=== PATIENT | male | born 2000 | race Caucasian/White ===

== ENCOUNTER 2024-04-14 12:01 | Emergency (ER) | payer BC, SELFPAY ==
[2024-04-14 12:07] VITALS: BP 115/73; PULSE 73; RESP 18; TEMP 36.9; O2SAT 96; BMI 24.4
--- NOTE | 2024-04-14 12:17 | ED_ITS ---
HPI - General Adult General Time Seen by Provider: 12:17 Date Seen: 04/14/24 Chief complaint: Dizziness/Vertigo Stated complaint: Needs A1C done Time Seen by Provider: 04/14/24 12:17 Source: patient, family and RN notes reviewed Mode of arrival: ambulatory Limitations: no limitations History of Present Illness HPI narrative: Chi is a very pleasant 23-year-old college student who comes to the [place] [facility] with his mom for evaluation regarding weakness, elevated blood sugars, content constant fatigue. Chi states that in September of this year he tested positive for mono. His symptoms included fatigue lightheadedness splenomegaly and persistent enlargement of his lymph nodes. He notes that in January he had an ultrasound at which time he still had residual spleen enlargement. Recently however he has had issues of early CAD, lightheadedness and fatigue as well as blurriness in his eyes after eating. He has had a 25-30 lb weight loss since September of this year. Of note he also has a history of EOE diagnosis through [facility] and actually has an upcoming endoscopy scheduled on April 27. Patient notes that he tested is blood sugars with his dad's who common her last night and this morning. Last evening he had a blood sugar over 300 and repeat this morning was 319. He does note that he has been urinating a lot and has been very thirsty and drinking a lot of fluids. Chi thinks that he had a flare of his EOE ED approximately 2 weeks ago. He is seen primarily through the [facility] system but is a student here in [place]. Mom and dad live in [place]. Need Chi has not been suffering any fevers. He has had some loose stools. While nauseated he has not had any vomiting. He denies sore throat cough congestion. Chi in his mom of course are very concerned regarding diabetes. They stressed the importance of a hemoglobin A1c described to them by the triage nurse on their telephone call this morning. Related Data Home Medications ?Medication ?Instructions ?Recorded ?Confirmed budesonide 04/14/24 Allergies Allergy/AdvReac Type Severity Reaction Status Date / Time No Known Drug Allergies Allergy Verified 04/14/24 12:12 Review of Systems Status of ROS: Reports: 10 or more systems reviewed and unremarkable except as noted in History and below Const: Reports: change in weight (25-30 lb weight loss since September 2023) and fatigue; Denies: fever or chills Eyes: Reports: blurry vision; Denies: change in vision ENMT: Denies: neck pain or nasal congestion Cardio: Reports: lightheadedness; Denies: chest pain, swelling of feet/ankles or shortness of breath with exertion Resp: Denies: shortness of breath or cough GI: Reports: abdominal pain, nausea and diarrhea; Denies: vomiting : Reports: urinary frequency; Denies: painful urination Musculo: Denies: back pain or neck pain Neuro: Reports: headache Endo: Reports: fatigue PFSH PFSH Social History Smoking Status: Never smoker Do you use any of these nicotine containing products: None How often do you have a drink containing alcohol: never How often do you have six or more drinks on one occasion: Never AUDIT-C Alcohol total score: 0 Non-prescribed substance use: denies use Exam Narrative: Exam Narrative: Chi is alert and oriented. No acute distress. External ears eyes nose clear. Neck is supple without lymphadenopathy. Heart with regular rate and rhythm without additional heart sounds or murmurs. Lungs are clear bilaterally. Abdomen is soft. No significant tenderness with palpation. No masses are palpated. Lower extremities without edema. Moving all extremities. Const: Vital Signs, click to edit/add: Vital Signs - 24 hr 04/14/24 12:07 04/14/24 14:23 Temperature 98.4 F Pulse Rate [Right Pulse Oximeter] 73 76 Respiratory Rate 18 Blood Pressure [Ri ght Upper Arm] 115/73 125/74 Pulse Oximetry 96 96 Oxygen Delivery Me thod Room Air Room Air Documenting provider has reviewed patient's vital signs: yes Course Course ED Course: Differential diagnosis includes but is not limited to post viral syndrome/post mono syndrome, type 1 diabetes, type 2 diabetes. Of course my concern is new onset type 1 diabetes. At this time will place IV and check labs to include CBC, comprehensive panel, CRP, TSH, hemoglobin A1c, celiac panel. Reevaluation(s) Reevaluation #1: Labs have returned as normal with a normal hemoglobin, white count, glucose, creatinine and LFTs. Lactate is negative. CRP is normal. Lipase TSH all within normal limits urinalysis shows trace ketones but no evidence of glucosuria. These findings are very reassuring. Patient continues to note early satiety and therefore will do an abdominal ultrasound to check for any hepato or splenomegaly. Reevaluation #2: No evidence of a paddle or splenomegaly noted on abdominal ultrasound. Patient denies any previous tick bites that have added a Lyme and tick panel. Vital Signs Vital signs: Initial Vital Signs Temperature 98.4 F 04/14/24 12:07 Temperature Source Temporal Artery Scan 04/14/24 12:07 Pulse Rate 73 04/14/24 12:07 Respiratory Rate 18 04/14/24 12:07 Blood Pressure 115/73 04/14/24 12:07 Blood Pressure Mean 87 04/14/24 12:07 Blood Pressure Position Sitting 04/14/24 12:07 Pulse Oximetry 96 04/14/24 12:07 Oxygen Delivery Method Room Air 04/14/24 12:07 Vital Signs Temperature 98.4 F 04/14/24 12:07 Pulse Rate 73 04/14/24 12:07 Respiratory Rate 18 04/14/24 12:07 Blood Pressure 115/73 04/14/24 12:07 Pulse Oximetry 96 04/14/24 12:07 Oxygen Delivery Method Room Air 04/14/24 12:07 Temperature 98.4 F 04/14/24 12:07 Pulse Rate 76 04/14/24 14:23 Respiratory Rate 18 04/14/24 12:07 Blood Pressure 125/74 04/14/24 14:23 Pulse Oximetry 96 04/14/24 14:23 Oxygen Delivery Method Room Air 04/14/24 14:23 Medications Administered Medications: Discontinued Medications Generic Name Dose Route Start Last Admin Trade Name Freq PRN Reason Stop Dose Admin Sodium Chloride 1,000 mls @ 1,000 mls/hr 04/14/24 12:28 04/14/24 14:00 0.9 % Sodium Chloride 1000 Ml IV 04/14/24 13:27 Infused .Q1H TIMUR Infusion Medical Decision Making MDM Narrative Medical decision making narrative: 1. Fatigue-likely a post mono type syndrome. Have ruled out hyperglycemia. White count and CRP within normal limits. TSH within normal limits. No evidence of anemia electrolyte abnormality kidney dysfunction or elevated liver enzymes. CRP is within normal limits. No evidence of UTI. 2. Hyperglycemia-initial glucose 87 here. Post food intake 112. I cannot explain the 2 values over 300 that patient had last night and early this morning. Hemoglobin A1c within normal limits. 3. History of splenomegaly-normal ultrasound here today. 4. Disposition- home at this time. Follow-up with 1 of our clinics to establish for further testing for ongoing fatigue, headache, body ache symptoms. This is in the setting of weight loss. TSH was normal today. Because of loose stools I did add a celiac test. Return to the emergency room for worsening symptoms. Lab Data Lab results reviewed: Yes I reviewed the patient's lab results Labs: Lab Results 04/14/24 04/14/24 04/14/24 Range/Units 12:46 16:08 16:31 WBC 5.71 (4.50-11.00) K/uL RBC 5.47 (4.30-5.90) m/uL Hgb 16.3 (13.5-17.5) gm/dL Hct 48.2 (37.0-53.0) % MCV 88 (80-100) fL MCH 30 (26-34) pg MCHC 34 (32-36) gm/dL RDW Coeff of Trinity 11.7 (11.5-15.5) % Plt Count 236 (140-440) K/uL Neut % (Auto) 59.2 (42.0-72.0) % Lymph % (Auto) 27.5 (20-44) % Nash % (Auto) 8.9 (0.0-11.0) % Eos % (Auto) 3.7 (0.0-7.0) % Baso % (Auto) 0.7 (0.0-3.0) % Neut # (Auto) 3.38 (1.7-7.0) K/uL Lymph # (Auto) 1.57 (0.90-2.90) K/uL Nash # (Auto) 0.50 (0.00-0.90) K/UL Eos # (Auto) 0.21 (0.00-0.50) K/uL Baso # (Auto) 0.04 (0.00-0.30) K/uL Abs Immat Gran (auto) 0.00 (0.00-0.30) K/uL Imm/Tot Granulo (auto) 0.0 % Sodium 139 (135-149) mmol/L Potassium 4.1 (3.6-5.1) mmol/L Chloride 101 (96-114) mmol/L Carbon Dioxide 28 (20-32) mmol/L Anion Gap 10 (7-15) mEq/L BUN 11 (5-24) mg/dL Creatinine 0.9 (0.5-1.5) mg/dL Estimated Creat Clear 132.93 Estimated GFR 124 ml/min Glucose 87 (60-115) mg/dL Hemoglobin A1c 5.2 (0-5.6) % Lactate 0.8 (0.5-1.9) mmol/L Calcium 9.8 (8.4-10.6) mg/dL Total Bilirubin 1.0 (0.1-1.5) mg/dL AST 24 (12-35) U/L ALT 19 (4-50) U/L Alkaline Phosphatase 58 (40-150) U/L C-Reactive Protein < 0.5 L (0.5-1.0) mg/dL Total Protein 7.6 (6.0-8.3) g/dL Albumin 5.0 (3.3-5.0) g/dL Lipase 63 (23-300) U/L TSH 1.040 (0.270-4.200) uIU/mL Urine Color Yellow (Yellow) Urine Appearance Clear (Clear) Urine pH 7.5 (5.0-8.5) Ur Specific [place] 1.015 (1.000-1.030) Urine Protein Negative (Negative) Urine Glucose (UA) Negative (Negative) Urine Ketones Trace A (Negative) Urine Blood Negative (Negative) Urine Nitrite Negative (Negative) Urine Bilirubin Negative (Negative) Urine Urobilinogen 0.2 (0.2-1.0) Ur Leukocyte Esterase Negative (Negative) Urine RBC 0-2 (0-2) Urine WBC 0-2 (0-5) Urine WBC Clumps None (None) Ur Squamous Epith Cells Few (None-Few) Urine Bacteria Few A (None) B.burgdorferi IgG Cancelled B.burgdorferi IgM Cancelled Lyme Disease Antibody Cancelled Lyme Disease Interpret Cancelled Lab Acknowledgement Test Added POC Glucose 112 (60-115) mg/dl Imaging Data US - abdomen: Attestation: I have reviewed the pertinent imaging results. Radiologist's impression: FINDINGS: The patient`s liver is of normal size and has uniform echogenicity. There is a normal appearance of the hepatic IVC and proximal abdominal aorta. There is no evidence of ascites. The gallbladder is of normal size and there is no evidence of intraluminal stones or sludge. The gallbladder wall measures 2 mm in thickness. The common bile duct is of normal size and measures 3 mm in diameter at the level of the ramiro hepatis. The visualized portions of the pancreas appears normal. Kidneys are unremarkable. Spleen is not enlarged measuring 11.1 centimeters x 3.9 x 5.8 centimeters. No splenic lesion. IMPRESSION: Unremarkable exam. Spleen is within normal limits. Discharge Plan Discharge Clinical Impression: Fatigue, Post viral syndrome Patient Disposition: Home, Self-Care Condition: Improved Additional Instructions: At this time initial blood sugar reassuring and blood sugar after eating was 112, still within normal limits. Ultrasound of the abdomen did not show any evidence of enlarged organs. I do think we should have you follow-up and establish with 1 of our physicians here in town for further tests in relation to your fatigue. Options: [facility]: [phone] Nidia Marmolejo, are two suggestions but really their staff is quite good Our Clinic: Dr Zimmerman, Dr Castro But again, any provider you pick is good Prescriptions: No Action budesonide Follow Up/Referrals: Provider,Not a Local [Primary Care Provider] - Stand Alone Forms: [employer] Info Instructions
[2024-04-14] MEDS: 0.9 % SODIUM CHLORIDE 1000 ml 1,000 ML IV (12:50)
[2024-04-14 12:53] LABS: Basophils Absolute Auto 0.04 K/uL (0.00-0.30); Basophils Percent Auto 0.7 % (0.0-3.0); Eosinophils Absolute Auto 0.21 K/uL (0.00-0.50); Eosinophils Percent Auto 3.7 % (0.0-7.0); Hematocrit 48.2 % (37.0-53.0); Hemoglobin* 16.3 gm/dL (13.5-17.5); Lactate* 0.8 mmol/L (0.5-1.9); Lymphocytes Absolute Auto 1.57 K/uL (0.90-2.90); Lymphocytes Percent Auto 27.5 % (20-44); Mean Corpuscular HGB Conc 34 gm/dL (32-36); Mean Corpuscular Hemoglobin 30 pg (26-34); Mean Corpuscular Volume 88 fL (80-100); Monocytes Percent Auto 8.9 % (0.0-11.0); Neutrophils Absolute Auto 3.38 K/uL (1.7-7.0); Neutrophils Percent Auto 59.2 % (42.0-72.0); Platelet Count* 236 K/uL (140-440); RDW Coefficient of Variation % 11.7 % (11.5-15.5); Red Blood Count 5.47 m/uL (4.30-5.90); White Blood Count* 5.71 K/uL (4.50-11.00)
[2024-04-14 12:54] LABS: Appearance Urine Clear (Clear); Bilirubin Urine Negative (Negative); Blood Urine Negative (Negative); Color Urine Yellow (Yellow); Glucose Urine Negative (Negative); Ketones Urine Trace (Negative); Leukocyte Esterase Urine Negative (Negative); Nitrite Urine Negative (Negative); Protein Urine Negative (Negative); Specific Gravity Urine 1.015 (1.000-1.030); Urobilinogen Urine 0.2 (0.2-1.0); pH Urine 7.5 (5.0-8.5)
[2024-04-14 13:07] LABS: Hemoglobin A1C* 5.2 % (0-5.6)
[2024-04-14 13:14] LABS: Chloride* 101 mmol/L (96-114); Sodium* 139 mmol/L (135-149)
[2024-04-14 13:15] LABS: Potassium* 4.1 mmol/L (3.6-5.1)
[2024-04-14 13:16] LABS: Creatinine* 0.9 mg/dL (0.5-1.5); Est. Creatinine Clearance* 132.93; Estimated Glomerular Filt Rate 124 ml/min
[2024-04-14 13:17] LABS: Alanine Aminotransferase* 19 U/L (4-50); Alkaline Phosphatase* 58 U/L (40-150); Anion Gap 10 mEq/L (7-15); Aspartate Amino Transferase* 24 U/L (12-35); Blood Urea Nitrogen* 11 mg/dL (5-24); Carbon Dioxide* 28 mmol/L (20-32); Glucose* 87 mg/dL (60-115); Lipase* 63 U/L (23-300); Total Protein* 7.6 g/dL (6.0-8.3)
[2024-04-14 13:18] LABS: Calcium* 9.8 mg/dL (8.4-10.6)
[2024-04-14 13:20] LABS: Bacteria Urine Few; RBC Urine 0-2 (0-2); Squamous Epithelial Cell Urine Few (None-Few); WBC Urine 0-2 (0-5)
[2024-04-14 13:47] LABS: Slide Review Reflex No
[2024-04-14 13:48] LABS: C Reactive Protein* < 0.5 mg/dL (0.5-1.0)
--- NOTE | 2024-04-14 14:10 | CRLHL7_ITS ---
For Patients: As a result of the Century Cures Act, medical imaging exams and procedure reports are released immediately into your electronic medical record. You may view this report before your referring provider. If you have questions, please contact your health care provider. CLINICAL HISTORY: History of splenomegaly FINDINGS: The patient`s liver is of normal size and has uniform echogenicity. There is a normal appearance of the hepatic IVC and proximal abdominal aorta. There is no evidence of ascites. The gallbladder is of normal size and there is no evidence of intraluminal stones or sludge. The gallbladder wall measures 2 mm in thickness. The common bile duct is of normal size and measures 3 mm in diameter at the level of the ramiro hepatis. The visualized portions of the pancreas appears normal. Kidneys are unremarkable. Spleen is not enlarged measuring 11.1 centimeters x 3.9 x 5.8 centimeters. No splenic lesion. IMPRESSION: Unremarkable exam. Spleen is within normal limits. Dictated by Cece Brown MD @ 04/14/2024 4:30:44 PM (Electronically Signed)
[2024-04-14 14:23] VITALS: BP 125/74; PULSE 76; O2SAT 96
[2024-04-14 16:19] LABS: Glucose, Point-of-Care* 112 mg/dl (60-115)
[2024-04-18 00:01] LABS: Tissue Transglutaminase Ab IgA 2.81 FLU (0.00-4.99)
[2024-04-18 14:17] LABS: Anaplasma phagocyt PCR Not Detected; Babesia microti by PCR Not Detected; Babesia species by PCR Not Detected; Ehrlichia chaffeensis by PCR Not Detected; Ehrlichia ewingii/canis by PCR Not Detected; Ehrlichia muris-like by PCR Not Detected
== END 2024-04-14 16:43 | disposition home or self-care (01) ==
PROVIDERS: Emergency Provider Family Medicine
DX: R73.9 Hyperglycemia, unspecified (principal); G93.31 Postviral fatigue syndrome
CPT/HCPCS: 36415; 76700; 80053; 81001; 82947; 83036; 83605; 83690; 84443; 85025; 86140; 86231; 86258; 86364; 86618; 87086; 87468; 87469; 87484; 87798; 99284; J7030

== ENCOUNTER 2025-05-23 00:36 | Emergency (ER) | payer BC, SELFPAY ==
--- OUTSIDE RECORDS SUMMARY | 2025-05-15 09:30 | XMS_ITS | Encounter Summary ---
Author Organization [facility] Address [address] [place] [address] Care Team Providers Care Microbiology Instructor Name Role Phone Scooter More PA-C Unavailable [phone] Scooter More PA-C Primary Care Provider [phone] Joey Krause MD Unavailable [phone] Joey Krause MD Unavailable [phone] Reason for Referral * Occupational Therapy (Routine: Next available opening) - Pending Review Specialty Diagnoses / Procedures Referred By Edward hays Referred To Contact Diagnoses Fatigue, unspecified type Post viral syndrome Anxiety Brain fog Scooter More PA-C [address] [place] [address] Phone: tel: fax: Referral ID Status Reason Start Date Expiration Date V isits Requested Visits Authorized [id number] Pending Review 05/15/2025 05/15/2026 1 1 Question Answer Course of Action: Evaluation and Treatment Specialty Services: Per Associated Diagnosis Patient Scheduling Instructions: [facility] will call you to coordinate your care as prescribed by your provider. If you don't hear from a education courses sales representative within 2 business days, please call . Comments Please be aware that coverage of these services is subject to the terms and limitations of your health insurance plan. Call member services at your health plan with any benefit or coverage questions. [facility] will call you to coordinate your care as prescribed by your provider. If you don't hear from a education courses sales representative within 2 business days, please call . Reason for Visit * Reason Comments Physical Encounter Details Date Type Department Care Team (Late st Contact Info) Description 05/15/2025 9:30 AM CDT Office Visit [facility] [address] [place] [id number] Scooter More PA-C [address] [place] [address] Routine general medical examination at a health care facility (Primary Dx); Fatigue, unspecified type; Post viral syndrome; Eosinophilic esophagitis; Anxiety; Brain fog; Seasonal allergic rhinitis, unspecified trigger Social History Tobacco Use Types Packs/Day Years Used Date Smoking Tobacco: Never Smokeless Tobacco: Never Comments:NO SMOKERS IN HOUSE Alcohol Use Standard Drinks/Week Comments No 0 (1 standard drink = 0.6 oz pur e alcohol) PHQ-2 Answer Date Recorded PHQ-2 Score 1 05/15/2025 [facility] [place] [facility] - Occupational Stress Questionnaire Answer Date Recorded Do you feel stress - tense, restless, nervous, or anxious, or unable to sleep at night because your mind is troubled all the time - these days? To some extent 05/15/2025 Exercise Vital Sign Answer Date Recorde d On average, how many days pe r week do you engage in moderate to strenuous exercise (like a brisk walk)? 1 day Minutes of Exercise per Session Not on file 05/15/2025 Adolescent Education Answer Date Record ed Getting School Help Needed Not on file 05/10 Social Connections Answer Date Recorded How often do you feel lonely or isolated from th ose around you? Never 05/15/2025 Food Insecurity Answer Date Recorded Within the past 12 months, d id you worry that your food would run out before you got money to buy more? No 05/15/2025 Within the past 12 months, d id the food you bought just not last and you didn t have money to get more? No 05/15/2025 Housing Stability Answer Date Recorded Do you have housing? (Juan R jackman is defined as stable permanent housing and does not include staying outside in a car, in a tent, in an abandoned building, in an overnight snf, or couch-surfing.) Yes 05/15/2025 Are you worried about losing your housing? No 05/15/2025 Financial Resource Strain Answer Date R ecorded Within the past 12 months, h ave you or your family members you live with been unable to get utilities (heat, electricity) when it was really needed? No 05/15/2025 Transportation Needs Answer Date Record ed Within the past 12 months, h as lack of transportation kept you from medical appointments, getting your medicines, non-medical meetings or appointments, work, or from getting things that you need? No 05/15/2025 Interpersonal Safety Answer Date Record ed Do you feel physically and e motionally safe where you currently live? Yes 05/15/2025 Within the past 12 months, h ave you been hit, slapped, kicked or otherwise physically hurt by someone? No 05/15/2025 Within the past 12 months, h ave you been humiliated or emotionally abused in other ways by your partner or ex-partner? 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22 05/15/2025 9:28 AM CDT documented in this encounter Patient Instructions * Patient Instructions* Scooter More PA-C - 05/15/2025 9:30 AM CDT Images from the original note were not included. Patient Education Preventive Care Advice This is general advice we often give to help people stay healthy. Your care team may have specific advice just for you. Please talk to your care team about your own preventive care needs. Lifestyle Exercise at least 150 minutes each week (30 minutes a day, 5 days a week). Do muscle strengthening activities 2 days a week. These help control your weight and prevent disease. No smoking. Wear sunscreen to prevent skin cancer. Take time with family and friends. Have your home tested for radon every 2 to 5 years. Radon is a colorless, odorless gas that can harm your lungs. To learn more, go to www.health.[facility].ne. and search for Radon in Homes. Keep guns unloaded and locked up in a safe place like a safe or gun vault, or, use a gun lock and hide the keys. Always lock away bullets separately. To learn more, visit [employer]gov and search for safe gun storage. Nutrition Eat 5 or more servings of fruits and vegetables each day. Try wheat bread, brown rice and whole grain pasta (instead of white bread, rice, and pasta). Get enough calcium and vitamin D. Check the label on foods and aim for 100% of the ROUSTABOUT HAND (recommendeddaily allowance). Regular exams Have a dental exam and cleaning every 6 months. Older adults: Ask your care team how often to have memory testing. See your health care team every year to talk about: Any changes in your health. Any medicines your care team has prescribed. Preventive care, family planning, and ways to prevent chronic diseases. Shots (vaccines) HPV shots (up to age 26), if you've never had them before. Hepatitis B shots (up to age 59), if you've never had them before. COVID-19 shot: Get this shot when it's due. Flu shot: Get a flu shot every year. Tetanus shot: Get a tetanus shot every 10 years. Pneumococcal, hepatitis A, and RSV shots: Ask your care team if you need these based on your risk. Shingles shot (for age 50 and up). General health tests Diabetes screening: Starting at age 35, Get screened for diabetes at least every 3 years. If you are younger than age 35, ask your care team if you should be screened for diabetes. Cholesterol test: At age 39, start having a cholesterol test every 5 years, or more often if advised. Bone density scan (DEXA): At age 50, ask your care team if you should have this scan for osteoporosis (brittle bones). Hepatitis C: Get tested at least once in your life. Abdominal aortic aneurysm screening: Talk to your doctor about having this screening if you: Have ever smoked; and Are biologically male; and Are between the ages of 65 and 75. STIs (sexually transmitted infections) Before age 24: Ask your care team if you should be screened for STIs. After age 24: Get screened for STIs if you're at risk. You are at risk for STIs (including HIV) if: You are sexually active with more than one person. You don't use condoms every time. You or a partner was diagnosed with a sexually transmitted infection. If you are at risk for HIV, ask about PrEP medicine to prevent HIV. Get tested for HIV at least once in your life, whether you are at risk for HIV or not. Cancer screening tests Cervical cancer screening: If you have a cervix, begin getting regular cervical cancer screening tests at age 21. Most people who have regular screenings with normal results can stop after age 65. Talk about this with your provider. Breast cancer scan (mammogram): If you've ever had breasts, begin having regular mammograms starting at age 40. This is a scan to check for breast cancer. Colon cancer screening: It is important to start screening for colon cancer at age 45. Have a colonoscopy test every 10 years (or more often if you're at risk) Or, ask your provider about stool tests like a FIT test every year or Cologuard test every 3 years. To learn more about your testing options, visit: www.[employer]/434384.pdf. For help making a decision, visit: cynthia/im27049. Prostate cancer screening test: If you have a prostate and are age 55 to 69, ask your provider if you would benefit from a yearly prostate cancer screening test. Lung cancer screening: If you are a current or former smoker age 50 to 80, ask your care team if ongoing lung cancer screenings are right for you. For informational purposes only. Not to replace the advice of your health care provider. Copyright ?? 2022 [facility]. All rights reserved. Clinically reviewed by the [facility] Transitions Program. [employer] [id number] - REV 01/16. Learning About Stress What is stress? Stress is your body's response to a hard situation. Your body can have a physical, emotional, or mental response. Stress is a fact of life for most people, and it affects everyone differently. What causes stress for you may not be stressful for someone else. A lot of things can cause stress. You may feel stress when you go on a job interview, take a test, or run a race. This kind of short-term stress is normal and even useful. It can help you if you needto work hard or react quickly. For example, stress can help you finish an important job on time. Long-term stress is caused by ongoing stressful situations or events. Examples of long-term stress include long-term health problems, ongoing problems at work, or conflicts in your family. Long-term stress can harm your health. How does stress affect your health? When you are stressed, your body responds as though you are in danger. It makes hormones that speedup your heart, make you breathe faster, and give you a burst of energy. This is called the kgelb-hs-nybfnz stress response. If the stress is over quickly, your body goes back to normal and no harm isdone. But if stress happens too often or lasts too long, it can have bad effects. Long-term stress can make you more likely to get sick, and it can make symptoms of some diseases worse. If you tense up when you are stressed, you may develop neck, shoulder, or low back pain. Stress is linked to high bloodpressure and heart disease. Stress also harms your emotional health. It can make you esteban, tense, or depressed. Your relationships may suffer, and you may not do well at work or school. What can you do to manage stress? You can try these things to help manage stress: Do something active. Exercise or activity can help reduce stress. Walking is a great way to get started. Even everyday activities such as housecleaning or yard work can help. Try yoga or isa chi. These techniques combine exercise and meditation. You may need some training at first to learn them. Do something you enjoy. For example, listen to music or go to a movie. Practice your hobby or do volunteer work. Meditate. This can help you relax, because you are not worrying about what happened before or what may happen in the future. Do guided imagery. Imagine yourself in any setting that helps you feel calm. You can use online videos, books, or a teacher to guide you. Do breathing exercises. For example: From a standing position, bend forward from the waist with your knees slightly bent. Let your arms dangle close to the floor. Breathe in slowly and deeply as you return to a standing position. Roll up slowly and lift your head last. Hold your breath for just a few seconds in the standing position. Breathe out slowly and bend forward from the waist. Let your feelings out. Talk, laugh, cry, and express anger when you need to. Talking with supportive friends or family, a counselor, or a claudia leader about your feelings is a healthy way to relieve stress. Avoid discussing your feelings with people who make you feel worse. Write. It may help to write about things that are bothering you. This helps you find out how much stress you feel and what is causing it. When you know this, you can find better ways to cope. What can you do to prevent stress? You might try some of these things to help prevent stress: Manage your time. This helps you find time to do the things you want and need to do. Get enough sleep. Your body recovers from the stresses of the day while you are sleeping. Get support. Your family, friends, and community can make a difference in how you experience stress. Limit your news feed. Avoid or limit time on social media or news that may make you feel stressed. Do something active. Exercise or activity can help reduce stress. Walking is a great way to get started. Where can you learn more? Go to https://www.[employer].net/patiented Enter N032 in the search box to learn more about Learning About Stress. Current as of: May 17, 2024 Content Version: 14.6 ?? [employer]. Care instructions adapted under license by your healthcare professional. If you have questions about a medical condition or this instruction, always ask your healthcare professional. [employer] disclaims any warranty or liability for your use of this information. [facility] documented in this encounter Progress Notes * Scooter More PA-C - 05/15/2025 9:30 AM CDT Images from the original note were not included. Preventive Care Visit [facility] Scooter More PA-C, Family Medicine May 15, 2025 Assessment & Plan Routine general medical examination at a health care facility: - Administered flu and tetanus vaccines. Blood pressure to be rechecked. Fatigue, unspecified type: - Fatigue may be multifactorial, potentially related to post viral syndrome, anxiety, and seasonal allergies. - Referred to occupational therapy to address chronic fatigue. Advised to consider holistic care options at [facility] if needed. Post viral syndrome: - Symptoms consistent with post viral syndrome, similar to long COVID, as discussed by infectious disease specialists. - Referred to occupational therapy for management of post viral symptoms. Option to pursue evaluation at post COVID clinic if occupational therapy is not effective. Eosinophilic esophagitis: - Eosinophilic esophagitis stable on current budesonide therapy. - Continue current budesonide regimen. No changes recommended. Anxiety: - New dx. anxiety may be contributing to fatigue and brain fog. Symptoms affecting mental health and daily functioning. - Prescribed escitalopram (Lexapro), starting with a one-month supply and refill. Advised daily dosing, with flexibility for morning or evening administration. Scheduled follow-up in 3 weeks to assess response and side effects. Brain fog: - Brain fog likely multifactorial, associated with post viral syndrome, anxiety, and seasonal allergies. - Occupational therapy referral for cognitive symptoms. Initiated escitalopram (Lexapro) to addresspossible anxiety-related component. Scheduled follow-up in 3 weeks. Seasonal allergic rhinitis, unspecified trigger: - Seasonal allergic rhinitis contributing to fatigue and brain fog, with fluid noted in right ear on examination. - Continue hfhc-oww-jwuznia antihistamine (cetirizine equivalent). Initiate intranasal corticosteroid (Flonase). Advised to consider screening specialist evaluation for further management. Discussed possible triggers and seasonal pattern. Consent was obtained from the patient to use an AI documentation tool in the creation of this note. BMI Estimated body mass index is 28.22 kg/m?? as calculated from the following: Height as of this encounter: 1.778 m (5' 10). Weight as of this encounter: 89.2 kg (196 lb 11.2 oz). Weight management plan: Discussed healthy diet and exercise guidelines Counseling Appropriate preventive services were addressed with this patient via screening, questionnaire, or discussion as appropriate for fall prevention, nutrition, physical activity, Tobacco-use cessation, social engagement, weight loss and cognition. Checklist reviewing preventive services available has been given to the patient. Reviewed patient's diet, addressing concerns and/or questions. He is at risk for lack of exercise and has been provided with information to increase physical activity for the benefit of his well-being. He is at risk for psychosocial distress and has been provided with information to reduce risk. The longitudinal plan of care for the diagnosis(es)/condition(s) as documented were addressed during this visit. Due to the added complexity in care, I will continue to support Chi in the subsequent management and with ongoing continuity of care. Kayden Mireles is a 24 year old, presenting for the following: Physical 05/15/2025 9:23 AM Additional Questions Roomed by Chary Nicholson Healthy Habits: Taking medications regularly: 1 Barriers to taking medications: Remembering to take History of Present Illness Reason for visit: Follow Up on senior living mono effects and allergies as well as potential anxiety He eats 0-1 servings of fruits and vegetables daily.He consumes 0 sweetened beverage(s) daily.He exercises with enough effort to increase his heart rate 9 or less minutes per day. He exercises with enough effort to increase his heart rate 3 or less days per week. He is missing 1 dose(s) of medications per week. He is not taking prescribed medications regularly due to remembering to take. BP Readings from Last 6 Encounters: 05/15/25 (!) 143/81 10/10/24 122/61 05/01/24 111/72 03/04/22 114/66 07/15/20 120/71 07/03/19 118/66 (49%, Z = -0.03 / 39%, Z = -0.28)* *BP percentiles are based on the 2017 AAP Clinical Practice Guideline for boys Patient here for physical and additional concerns: - Had mono starting September 2023, symptoms worsened in fall 2023, improved over winter and spring butnever fully resolved. - Persistent brain fog since mono, described as constant and worsened after physical activity. - Fatigue, feeling wiped out for days after working out. Affecting his mood now as well. - saw ID last September - Persistent symptoms, especially brain fog and fatigue, worsened at end of summer with allergy season. - Taking zgfv-grt-fuhppbq allergy medication (Zyrtec equivalent), provides some relief but symptomspersist. - feels that he has always had some anxiety, but anxiety has worsened due to ongoing symptoms; previously managed by being active. - History of Eosinophilic Esophagitis (EOE), managed with budesonide, treatment effective and unchanged. See's [facility] - Considering seeing an screening specialist for allergies. - Lymph nodes sometimes feel swollen, especially at end of day; similar experience during mono. Advance Care Planning Discussed advance care planning with patient; informed AVS has link to [employer]. 05/15/2025 General Health How would you rate your overall physical health? (!) POOR Feel stress (tense, anxious, or unable to sleep) To some extent (!) STRESS CONCERN 05/15/2025 Nutrition Three or more servings of calcium each day? (!) NO Diet: Regular (no restrictions) How many servings of fruit and vegetables per day? (!) 0-1 How many sweetened beverages each day? 0-1 05/15/2025 Exercise Days per week of moderate/strenous exercise 1 day (!) EXERCISE CONCERN 05/15/2025 Social Factors Frequency of feeling lonely or isolated Never Worry food won't last until get money to buy more No Food not last or not have enough money for food? No Do you have housing? (Housing is defined as stable permanent housing and does not include staying outside in a car, in a tent, in an abandoned building, in an overnight snf, or couch-surfing.) Yes Are you worried about losing your housing? No Lack of transportation? No Unable to get utilities (heat,electricity)? No 05/15/2025 Dental Dentist two times every year? Yes Today's PHQ-2 Score: 05/14/2025 10:32 PM PHQ-2 (??1999 Pfizer) Q1: Little interest or pleasure in doing things 1 Q2: Feeling down, depressed or hopeless 0 PHQ-2 Score 1 Q1: Little interest or pleasure in doing things Several days Q2: Feeling down, depressed or hopeless Not at all PHQ-2 Score 1 Patient-reported 05/15/2025 Substance Use Alcohol more than 3/day or more than 7/wk Not Applicable Do you use any other substances recreationally? No Social History Tobacco Use Smoking status: Never Smokeless tobacco: Never Tobacco comments: NO SMOKERS IN HOUSE Vaping Use Vaping status: Never Used Substance Use Topics Alcohol use: No Drug use: No 05/15/2025 STI Screening New sexual partner(s) since last STI/HIV test? No 05/15/2025 Contraception/Family Planning Questions about contraception or family planning No Reviewed and updated as needed this visit by Provider Objective Exam BP (!) 143/81 (BP Location: Right arm, Patient Position: Sitting, Cuff Size: Adult Regular) Pulse86 Temp 97.3 ??F (36.3 ??C) (Oral) Resp 16 Ht 1.778 m (5' 10) Wt 89.2 kg (196 lb 11.2 oz) SpO2 97% BMI 28.22 kg/m?? Estimated body mass index is 28.22 kg/m?? as calculated from the following: Height as of this encounter: 1.778 m (5' 10). Weight as of this encounter: 89.2 kg (196 lb 11.2 oz). Physical Exam GENERAL: alert and no distress EYES: Eyes grossly normal to inspection, PERRL and conjunctivae and sclerae normal HENT: ear canals and TM's normal, nose and mouth without ulcers or lesions NECK: no adenopathy, no asymmetry, masses, or scars RESP: lungs clear to auscultation - no rales, rhonchi or wheezes CV: regular rate and rhythm, normal S1 S2, no S3 or S4, no murmur, click or rub, no peripheral edema MS: no gross musculoskeletal defects noted, no edema SKIN: no suspicious lesions or rashes NEURO: Normal strength and tone, mentation intact and speech normal PSYCH: mentation appears normal, affect normal/bright but anxious Signed Electronically by: Scooter More PA-C * Chary Herring CMA - 05/15/2025 9:30 AM CDT Prior to immunization administration, verified patients identity using patient???s name and date ofbirth. Please see Immunization Activity for additional information. Screening Questionnaire for Adult Immunization Are you sick today? No Do you have allergies to medications, food, a vaccine component or latex? No Have you ever had a serious reaction after receiving a vaccination? No Do you have a long-term health problem with heart, lung, kidney, or metabolic disease (e.g., diabetes), asthma, a blood disorder, no spleen, complement component deficiency, a cochlear implant, or a spinal fluid leak? Are you on long-term aspirin therapy? No Do you have cancer, leukemia, HIV/AIDS, or any other immune system problem? No Do you have a parent, brother, or sister with an immune system problem? No In the past 3 months, have you taken medications that affect your immune system, such as prednisone, other steroids, or anticancer drugs; drugs for the treatment of rheumatoid arthritis, Crohn???s disease, or psoriasis; or have you had radiation treatments? No Have you had a seizure, or a brain or other nervous system problem? No During the past year, have you received a transfusion of blood or blood products, or been given immune (gamma) globulin or antiviral drug? No For women: Are you or is there a chance you could become during the next month? No Have you received any vaccinations in the past 4 weeks? No Immunization questionnaire answers were all negative. Patient instructed to remain in clinic for 15 minutes afterwards, and to report any adverse reactions. Screening performed by Chary Herring CMA on 05/15/2025 at 10:10 AM. documented in this encounter Plan of Treatment Upcoming Encounters Date Type Department Care Team (Late st Contact Info) Description 06/05/2025 4:30 PM GRADUATE STUDENT INSTRUCTOR Virtual Visit [facility] [address] [place] [address] Scooter More PA-C [address] [place] [address] Scheduled Referrals Name Type Priority Associated Diagnoses Orde r Schedule Occupational Therapy Phd Internship Referral Referral Routine: Next available opening Fatigue, unspecified type Post viral syndrome Anxiety Brain fog Expected: 05/15/2025 (Approximate), Expires: 05/15/2026 documented as of this encounter Visit Diagnoses Diagnosis Routine general medical examination at a health care facility- Primary Fatigue, unspecified type Post viral syndrome Eosinophilic esophagitis Anxiety Anxiety state, unspecified Brain fog Seasonal allergic rhinitis, unspecified trigger documented in this encounter Additional Health Concerns Assessment Noted Time PHQ-9 Depression Total Score: 4 07/16/20 20 7:03 AM GRADUATE STUDENT INSTRUCTOR documented as of this encounter Care Teams Microbiology Instructor Relationship Specialty Start Date End Date Scooter More PA-C [address] [place] [address] PCP - General 04/30/24 Scooter More PA-C [address] [place] [address] Assigned PCP 03/20/22 Joey Krause MD [address] [place] [address], [address] [address] Physician Infectious Diseases 09/05/24 Joey Krause MD [address] [place] [address], [address] [address] Assigned Infectious Disease Provider 10/14/24 documented as of this encounter
--- OUTSIDE RECORDS SUMMARY | 2025-05-23 00:39 | XMS_ITS | Encounter Summary ---
Author Organization [facility] Address [address] [place] [address]. [place] [address] Care Team Providers Care Heel Coverer Name Role Phone Sienna Damon MD Primary Care Provider Unavailable Sienna Damon MD Unavailable Unava ilable Sienna Carrera NP Unavailable [phone] Jose E Sesay-C Unavailable [phone] Juliann Vega DPM, Podiatry /Foot and Ankle Surgery Unavailable Sienna Damon MD Unavailable Unava ilable Jose E Sesay-C Unavailable [phone] No Ref-Primary, Physician Primary Care Provider Scooter More PA-C Unavailable [phone] Scooter More PA-C Primary Care Provider [phone] Joey Krause MD Unavailable [phone] Joey Krause MD Unavailable [phone] Encounter Details Date Type Department Care Team (Late st Contact Info) Description 03/05/2020 Siddhartha Medical Advice [facility] [address] [facility] [address] [place] [address] Racquel Mckoy, [facility] Social History Tobacco Use Types Packs/Day Years Used Date Smoking Tobacco: Never Smokeless Tobacco: Never Comments:NO SMOKERS IN HOUSE Alcohol Use Standard Drinks/Week Comments No 0 (1 standard drink = 0.6 oz pur e alcohol) PHQ-2 Answer Date Recorded PHQ-2 Score 0 03/05/2020 Sex and Gender Information Value Date Recorded Sex Assigned at Not on file Legal Sex Male 4:17 AM DISPLAY SCREEN FABRICATOR Gender Identity Not on file Sexual Orientation Not on file Travel History Travel Start Travel End [place] 05/10/2025 05/12/2025 COVID-19 Exposure Response Date Recorded In the last month, have you been in contact with someone who was confirmed or suspected to have Coronavirus / COVID-19? No / Unsure 03/04/2020 7:35 PM CDT documented as of this encounter Plan of Treatment Upcoming Encounters Date Type Department Care Team (Late st Contact Info) Description 06/05/2025 4:30 PM DISPLAY SCREEN FABRICATOR Virtual Visit [facility] [address] [place] [phone] Scooter More PA-C [address] [place], [place] [id number] documented as of this encounter Visit Diagnoses Not on filedocumented in this encounter Additional Health Concerns Assessment Noted Time PHQ-9 Depression Total Score: 2 03/12/20 19 2:46 PM CDT documented as of this encounter Care Teams Heel Coverer Relationship Specialty Start Date End Date Sienna Damon MD PCP - General 07/15/03 03/03/22 No Ref-Primary, Physician PCP - General 03/04/22 04/29/24 Scooter More PA-C [address] [place], [place] [id number] PCP - General 04/30/24 Sienna Damon MD NO LONGER AT [facility]/UNABLE TO LOCATE 07/11/23 Assigned PCP 03/19/18 03/15/20 Sienna Carrera NP [address] [place] [address] Assigned PCP 03/16/20 03/29/20 Jose E Sesay PA-C [address] [place] [id number] Assigned PCP 03/30/20 07/05/20 Juliann Vega, DPM, Podiatry/Foot and Ankle Surgery [address] [place] [address] Assigned Musculoskeletal Provider 05/16/20 01/03/21 Sienna Damon MD NO LONGER AT [facility]/UNABLE TO LOCATE 07/11/23 Assigned PCP 07/06/20 07/26/20 Jose E Sesay PA-C [address] [place] [id number] Assigned PCP 07/27/20 03/19/22 Scooter More PA-C [address] [place] [address] Assigned PCP 03/20/22 Joey Krause MD [address] [place] [address], [facility] [address] [place] [address] Physician Infectious Diseases 09/05/24 Joey Krause MD [address] [facility], [facility] [address] [place] [address] Assigned Infectious Disease Provider 10/14/24 documented as of this encounter
--- OUTSIDE RECORDS SUMMARY | 2025-05-23 00:39 | XMS_ITS | Encounter Summary ---
Author Organization [facility] Address [address] [place] [address]. [place] [address] Care Team Providers Care Repair Electric Motor Assembler Name Role Phone Sienna Damon MD Primary Care Provider Unavailable Sienna Damon MD Unavailable Unava ilable Sienna Carrera NP Unavailable [phone] Jose E Sesay-C Unavailable [phone] Juliann Vega DPM, Podiatry /Foot and Ankle Surgery Unavailable Sienna Damon MD Unavailable Unava ilable Jsoe E Sesay-C Unavailable [phone] No Ref-Primary, Physician Primary Care Provider Scooter More PA-C Unavailable [phone] Scooter More PA-C Primary Care Provider [phone] Joey Krause MD Unavailable [phone] Joey Krause MD Unavailable [phone] Encounter Details Date Type Department Care Team (Late st Contact Info) Description 03/05/2020 Siddhartha Medical Advice [facility] [address] [facility] [address] [place] [address] Racquel Mckoy, [facility] Social History Tobacco Use Types Packs/Day Years Used Date Smoking Tobacco: Never Smokeless Tobacco: Never Comments:NO SMOKERS IN HOUSE Alcohol Use Standard Drinks/Week Comments No 0 (1 standard drink = 0.6 oz pur e alcohol) PHQ-2 Answer Date Recorded PHQ-2 Score 0 03/05/2020 Sex and Gender Information Value Date Recorded Sex Assigned at Not on file Legal Sex Male 4:17 AM CAFETERIA CLERK Gender Identity Not on file Sexual Orientation [...] st Contact Info) Description 06/05/2025 4:30 PM CAFETERIA CLERK Virtual Visit [facility] [address] [place] [phone] Scooter More PA-C [address], [place] [phone] documented as of this encounter Visit Diagnoses Not on filedocumented in this encounter Additional Health Concerns Assessment Noted Time PHQ-9 Depression Total Score: 2 03/12/20 19 2:46 PM CDT documented as of this encounter Care Teams Repair Electric Motor Assembler Relationship Specialty Start Date End Date Sienna Damon MD PCP - General 07/15/03 03/03/22 No Ref-Primary, Physician PCP - General 03/04/22 04/29/24 Scooter More PA-C [address] [place], [place] [id number] PCP - General 04/30/24 Sienna Damon MD NO LONGER AT [facility]/UNABLE TO LOCATE 07/11/23 Assigned PCP 03/19/18 03/15/20 Sienna Carrera NP [address] [place] [address] Assigned PCP 03/16/20 03/29/20 Jose E Sesay PA-C [address] [place] [id number] Assigned PCP 03/30/20 07/05/20 Juliann Vega, DPM, Podiatry/Foot and Ankle Surgery [address] [place] [address] Assigned Musculoskeletal Provider 05/16/20 01/03/21 Sienna Damon MD NO LONGER AT [facility]/UNABLE TO LOCATE 07/11/23 Assigned PCP 07/06/20 07/26/20 Jose E Sesay PA-C [address] [place] [id number] Assigned PCP 07/27/20 03/19/22 Scooter More PA-C [address] [place] [address] Assigned PCP 03/20/22 Joey Krause MD [address] [place] [address], [facility] [address] [place] [address] Physician Infectious Diseases 09/05/24 Joey Krause MD [address] [facility], [facility] [address] [place] [address] Assigned Infectious Disease Provider 10/14/24 documented as of this encounter
--- OUTSIDE RECORDS SUMMARY | 2025-05-23 00:40 | XMS_ITS | Patient Health Record ---
Author Organization [facility] Address [address] [place] [address] Care Team Providers Care Mapping Engineer Name Role Phone ElliotSienna quinteros Primary Care Provider BRYAN Andersen Unavailable [phone] Allergies No Known Allergies Reason For Referral No Information Medications Medication SIG (Take, Route, Frequency, Duration) Notes Start Date End Date Status Singulair 5 MG Tablet Chewable 2 tablets in the evening Orally Once a day Active Albuterol Active Multivitamins Capsule Orally Active ProAir HFA 108 (90 Base) MCG/ACT Aerosol Solution 2 puffs as needed Inhalation every 4 hrs Active Fluticasone Propionate 50 MCG/ACT Suspension 1 spray in each nostril Nasally Once a day Active Qvar 80 MCG/ACT Aerosol Solution 1 puff Inhalation Twice a day Active Social History Social History Tobacco Use: Social Info Question Answer Notes Parental tobacco use Do any of the paren ts or primary home health caregiver smoke? No Additional Details Category Social Info Options Details Tobacco Use: Is the child in daycare? No Do you have any pets with hair or dander? No Problems Problem Type SNOMED Code ICD Code Onset Dates Problem Status W/U Status Risk Notes Problem Deviated nasal septum (473813845) Nasal septal deviation (470) Active confirmed Problem Hypertrophy of nasal turbinates (disorder) (42361829) Nasal turbinate hypertrophy (478.0) Active confirmed Problem Multiple polyps of nasal cavity and/or nasal sinus (disorder) (1624580543) Nasal polyps (J33.9) Active confirmed Problem Deviated nasal septum (319379346) Nasal septal deviation (J34.2) Active confirmed Problem Dysphagia (51640697) Pharyngoesophageal dysphagia (R13.14) Active confirmed Problem Deviated nasal septum (549665865) Deviated nasal septum (J34.2) Active confirmed Problem Hypertrophy of nasal turbinates (47834697) Hypertrophy of nasal turbinates (J34.3) Active confirmed Plan Of Treatment No Information Insurance Providers Payer Name Payer Address Payer Phone Subscriber Number Group Number Insured Name Patient Relationship to Insured Coverage Start Date Coverage End Date [facility] [address] [address] [place] [address] [id number] Tanvi Ramirez Child - Insured has Financial Responsibility Medical (General) History Medical History History ICD Code asthma Surgical History Surgery Date(Month/Year) pastor RFA turbs w/outfx MG 10/24/2014
--- OUTSIDE RECORDS SUMMARY | 2025-05-23 00:40 | XMS_ITS | Encounter Summary ---
Author Organization [facility] Address [address] [place] [address]. [place] [address] Care Team Providers Care Cone Sewer Name Role Phone Scooter More PA-C Unavailable [phone] Scooter More PA-C Primary Care Provider [phone] Joey Krause MD Unavailable [phone] Joey Krause MD Unavailable [phone] Encounter Details Date Type Department Care Team (Latest Contact Info) Description 05/15/2025 Travel Social History Tobacco Use Types Packs/Day Years Used Date Smoking Tobacco: Never Smokeless Tobacco: Never Comments:NO SMOKERS IN HOUSE Alcohol Use Standard Drinks/Week Comments No 0 (1 standard drink = 0.6 oz pur e alcohol) PHQ-2 Answer Date Recorded PHQ-2 Score 1 05/15/2025 [facility] of Occupat ional Health - Occupational Stress [...] Recorded Do you have housing? (Juan R g is defined as stable permanent housing and does not include staying outside in a car, in a tent, in an abandoned building, in an overnight mcfp, or couch-surfing.) Yes 05/15/2025 Are you worried [...] on file Legal Sex Male 4:17 AM CENTRAL STERILE TECH Gender Identity Not on file Sexual Orientation Not on file Travel History Travel Start Travel End [place] 05/10/2025 05/12/2025 documented as of this encounter Plan of Treatment Upcoming Encounters Date Type Department Care Team (Late st Contact Info) Description 06/05/2025 4:30 PM CENTRAL STERILE TECH Virtual Visit [facility] [address] [place] [address] Scooter More PA-C [address] [address] documented as of this encounter Visit Diagnoses Not on filedocumented in this encounter Additional Health Concerns Assessment Noted Time PHQ-9 Depression Total Score: 4 07/16/20 20 7:03 AM CENTRAL STERILE TECH documented as of this encounter Care Teams Cone Sewer Relationship Specialty Start Date End Date Scooter More PA-C [address] [place] [address] PCP - General 04/30/24 Scooter More PA-C [address] [address] Assigned PCP 03/20/22 Joey Krause MD [address] [place] [address] Physician Infectious Diseases 09/05/24 Joey Krause MD [address] [place] [address] Assigned Infectious Disease Provider 10/14/24 documented as of this encounter
--- OUTSIDE RECORDS SUMMARY | 2025-05-23 00:40 | XMS_ITS | Clinical Summary ---
Author Organization [facility] Address [address] [place] [address] Care Team Providers Care President & Ceo Name Role Phone Scooetr More PA-C Unavailable Scooter More PA-C Primary Care Provider [phone] Joey Krause MD Unavailable [phone] Joey Krause MD Unavailable [phone] Allergies Active Allergy Reactions Criticality Noted Date Comments Cats 07/01/2017 Dogs Cough 01/24/2006 Grass 03/12/2019 Mold Rash 01/24/2006 Seasonal Allergies 09/17/2011 Medications budesonide (PULMICORT) 1 MG/2ML neb solution 2 mg daily. 01/18/2022 Active albuterol (PROAIR HFA/PROVENTIL HFA/VENTOLIN HFA) 108 (90 Base) MCG/ACT inhalerIndicatio ns:Bronchospasm Inhale 2 puffs into the lungs every 6 hours 8.5 g 3 03/04/2022 Active fluticasone (FLOVENT HFA) 110 MCG/ACT inhalerIndicatio ns:Bronchospasm Inhale 1 puff into the lungs 2 times daily 12 g 03/26/2022 Active escitalopram (LEXAPRO) 10 MG tabletIndication s:Anxiety,Brain fog Take 1 tablet (10 mg) by mouth daily. 30 tablet 1 05/15/2025 Active Active Problems Problem Noted Date Diagnosed Date Eosinophilic esophagitis 05/15/2025 Post viral syndrome 05/15/2025 Acne vulgaris 08/24/2015 Mouth breathing causing malocclusion 07/23/2014 Allergic rhinitis 01/24/2006 Overview (04/24/2015): Problem list name updated by automated process. Provider to review Resolved Problems Problem Noted Date Diagnosed Date Resolved Date Possible Motor tic disorder 01/05/2013 03/15/2018 Obesity 05/21/2012 01/08/2014 Disturbance in sleep behavior 01/14/2011 01/08/2014 Overview (04/25/2015): Problem list name updated by automated process. Provider to review Asthma, mild persistent 05/29/200702/22 Mild intermittent asthma 12/22/2004 Moderate persistent asthma 08/05/2004 0 12/22/2004 eczema 08/10/2002 01/28/2017 Encounters Date Type Department Care Team Description 05/15/2025 9:30 AM CDT Office Visit [address] [address] Scooter More PA-C Routine general medical examination at a health care facility (Primary Dx); Fatigue, unspecified type; Post viral syndrome; Eosinophilic esophagitis; Anxiety; Brain fog; Seasonal allergic rhinitis, unspecified trigger 05/15/2025 Travel 05/14/2025 Travel from Last 3 Months Immunizations Immunization Administration Dates Next Due Comvax (HIB/HepB) 08/07/2002,2001,09/23/19 02 DTAP (<7y) 08/03/2005, 3,01/12/2002,11/17,2001 HEPA 09/17/2011,01/06/2011 HPV 08/01/2015,03/07/2015,01/24/2015 Influenza (H1N1) 06/11/2009 Influenza (IIV3) PF 05/11/2012, 1,05/06/2010,04/15,05/21/2008,05/27/2007,05/26/2006 ,05/18/2004,05/16/2002,04/20/2002 Influenza Vaccine >6 months,quad, PF ,06/02/2015,04/30/2014,05/03 Influenza, Split Virus, Triv alent, Pf (Fluzone\Fluarix) 05/15/2025 MMR (MMRII) 08/03/2005,10/26/2002 Meningococcal ACWY (Menactra ) 03/10/2018,01/24/2013 Pneumococcal (PCV 7) 08/07/2002,01/13/20 02,2001,09/22 Poliovirus, inactivated (IPV) 08/03/2005 ,04/20/2002,2001,09/22 TDAP (Adacel,Boostrix) 05/15/2025 TDAP Vaccine (Adacel) 01/24/2013 Varicella (Varivax) 12/31/2009,10/26/2002 Family History Medical History Relation Comments Diabetes Father Cardiovascular Maternal Grandfather BYPASS SURG WINNIE 8 YEARS AGO Cerebrovascular Disease Maternal Grandfather str sheri mild at 80 Cancer Maternal Grandmother Stomach, jorge ng Allergies Mother EXCEMA AND ALLER GIES Relation Status Comments Father Alive Maternal Grandfather Alive Maternal Grandmother Mother Alive Paternal Grandfather Alive Paternal Grandmother Alive Social History Tobacco Use Types Packs/Day Years Used Date Smoking Tobacco: Never Smokeless Tobacco: Never Tobacco Cessation:Counseling Given: Not Answered Comments:NO SMOKERS IN HOUSE Alcohol Use Standard Drinks/Week Comments No 0 (1 standard drink = 0.6 oz pur e alcohol) PHQ-2 Answer Date Recorded PHQ-2 Score 1 05/15/2025 [facility] of Occupat ional Health - Occupational Stress [...] in an abandoned building, in an overnight care home, or couch-surfing.) Yes 05/15/2025 Are you worried [...] on file Legal Sex Male 4:17 AM OCCUPATIONAL HYGIENIST Gender Identity Not on file Sexual Orientation Not on file Travel History Travel Start Travel End [place] 05/10/2025 05/12/2025 Last Filed Vital Signs Vital Sign Reading [...] Mass Index 28.22 05/15/2025 9:28 AM CDT Plan of Treatment Upcoming Encounters Date Type Department Care Team (Late st Contact Info) Description 06/05/2025 4:30 PM OCCUPATIONAL HYGIENIST Virtual Visit [facility] [address] [place] [address] Scooter More PA-C [address] [facility] [place] [address] Health Maintenance Due Date Last Done Comments MENINGITIS B VACCINE (1 of 2 - Standard) 2017 HEPATITIS C SCREENING 2019 COVID-19 VACCINE ( - season) 2025 ANNUAL REVIEW OF HM ORDERS 05/15/2026 05/15/2025, YEARLY PREVENTIVE VISIT 05/15/2026 05/15/20, 03/04/2022, 03/12/2019, Additional history exists ADVANCE CARE PLANNING 05/15/2030 05/15/2025 , 03/23/2022, 07/15/2020 DTAP/TDAP/TD VACCINE (8 - Td or Tdap) 05/15/2035 05/15/2025, 01/24/2013, 08/03/2005, Additional history exists ZOSTER VACCINE (1 of 2) 2051 HEPATITIS B VACCINE Completed 08/07/2002, 2001, 2001 PNEUMOCOCCAL VACCINE: PEDIATRICS (0 to 5 YEARS) AND AT-RISK PATIENTS (6 to 49 YEARS) Aged Out 08/07/2002, 01/12/2002, 2001, Additional history exists No longer eligible based on patient's age to complete this topic HPV VACCINE Completed 08/01/2015, 02/22, 01/24/2015 MENINGITIS VACCINE Completed 03/10/2018, 01/24/2013 HIV SCREENING Completed 10/10/2024, 03/14/2019 INFLUENZA VACCINE Completed 05/15/2025, , 06/02/2015, Additional history exists PHQ-2 (once per calendar year) Completed 05/15/2025, 12/27/2023, 03/04/2022, Additional history exists Procedures Procedure Name Priority Date/Time Associated Diagnosis Comments HIV ANTIGEN ANTIBODY COMBO Routine 10/10/2024 4:25 PM CDT History of mononucleosis from Last 3 Months or Most Recently Relevant to Health Maintenance Results * HIV Antigen Antibody Combo (10/10/2024 4:25 PM CDT) Pathologist [facility] HIV Antigen Antibody Combo Nonreactive Nonreactive 10/11/2024 2:59 AM CDT [facility] Comment:Negative HIV-1 p24 a ntigen and HIV-1/2 antibody screening test results usually indicate the absence of HIV-1 and HIV-2 infection. However, such negative results do not rule-out acute HIV infection. If acute HIV-1 or HIV-2 infection is suspected, detection of HIV-1 or HIV-2 RNA is recommended. This result is obtained using the Alicia Elecsys HIV Duo method on the amarjit e801 immunoassay analyzer. Blood STRUCTURE OF RIGHT UPPER LIMB / Unknown Venipuncture / Unknown 10/10/2024 4:25 PM CDT 10/10/2024 4:25 PM CDT us Joey Krause MD LAB - BLOOD ORDERABLES F inal Result [facility] [address] [facility], [address] [place] [address], [facility] from Last 3 Months or Most Recently Relevant to Health Maintenance Insurance BCBS OUT OF STATE BCBS OUT OF STATE Care Teams President & Ceo Relationship Specialty Start Date End Date Scooter More PA-C [address] [place] [address] PCP - General 04/30/24 Scooter More PA-C [address] [place] [address] Assigned PCP 03/20/22 Joey Krause MD [address] [facility], [facility] [address] [place], [place] [address] Physician Infectious Diseases 09/05/24 Joey Krause MD [address] [facility], [facility] [address] [place], [place] [address] Assigned Infectious Disease Provider 10/14/24
--- OUTSIDE RECORDS SUMMARY | 2025-05-23 00:40 | XMS_ITS | Encounter Summary ---
Author Organization [facility] Address [address] [place] [address] Care Team Providers Care Primary Care Nurse Name Role Phone Sienna [facility]on MD Primary Care Provider Unavailable Sienna Damon MD Unavailable Unava ilable Sienna [facility] MD Unavailable Unava ilable Sienna Carrera NP Unavailable [phone] Jose E Sesay PA-C Unavailable + [phone] Juliann Vega DPM, Podiatry /Foot and Ankle Surgery Unavailable Sienna [facility] MD Unavailable Unava ilable Jose E SesayC Unavailable + [phone] No Ref-Primary, Physician Primary Care Provider Scooter More PA-C Unavailable [phone] Scooter More PA-C Primary Care Provider [phone] Joey Krause MD Unavailable [phone] Joey Krause MD Unavailable [phone] Encounter Details Date Type Department Care Team (Late st Contact Info) Description 06/02/[address] [place] [address] Sienna [facility]on MD NO LONGER AT [facility]/UNABLE TO LOCATE 07/11/23 ER (Primary Dx) Social History Tobacco Use Types Packs/Day Years Used Date Smoking Tobacco: Never Smokeless Tobacco: Never Comments:NO SMOKERS IN HOUSE Alcohol Use Standard Drinks/Week Comments No 0 (1 standard drink = 0.6 oz pur e alcohol) Sex and Gender Information Value Date Recorded Sex Assigned at Not on file 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 HISTORY OF PRESENT ILLNE SS: This is a 6-mwngy-hok male brought in by his parents after a 48 hour history of URI symptoms. He was up several times during the night and subsequently today his cough has a significant increase in frequency and he seemed to be having wheezes. They did use a nebulizer at 4:00 p.m. today, in add ition to trying lqmr-dro-ewkwzml cough preparations, and then elected to bring him to urgent care whe n his cough did not improve. Urgent care began to do vital signs and noticed his oxygen saturation w as 89% and sent him immediately to the Emergency Room. When inquiring about additional symptoms, he has had no vomiting, no diarrhea. He is still having wet diapers. He is drinking plenty of water, a lthough his appetite for solids is slightly decreased. He does not have any new rashes, although his eczema is present. He has not been tugging at his ears. He has had some clear rhinorrhea. Mom did state he had one episode today where he spit up some green congestion. PAST MEDICAL HISTORY: React makeda airway disease, as well as eczema. MEDICATIONS: Pulmicort nebs, albuterol nebs, and Motrin. AMINTA CALDERON: NKDA, however, he is allergic to dogs. IMMUNIZATIONS: Up to date. PHYSICAL EXAMINATION: Temperature here is 102.4, pulse 165, respiratory rate 60, O2 sat is fluctuating between 89 and 92% on room air. His weight is 13.1 kg. He is awake and alert. He is not toxic, however, he is in mild respiratory distress with tachypnea and some obvious mild retractions. He is not cyanotic. HEENT; pupils are equal, round, reactive to light. Extraocular muscles are normal. His tympanic membranes are normal bilaterally and his pharynx is normal. Mucous membranes are moist. Neck is supple and no ntender. His lungs have bilateral inspiratory and expiratory wheezes. He has diffuse retractions. H e is tachypneic and his oxygen saturations are 89 to 92 as stated. Cardiac is regular rhythm. He is tachycardic, however, he is well perfused with good peripheral pulses and brisk capillary refill. Ab domen is soft, nondistended, nontender, with normal bowel sounds and no masses are present. On skin examination he has some mild eczema on his anterior knees and the posterior aspect of his arms along the triceps. His cheeks are also flushed. No other rashes are noted. Neurologically he is awake and alert. He is interactive, talkative with his family, and no neurologic deficits are present. EMERG ENCY DEPARTMENT COURSE: On arrival back to the Emergency Room after determining his low oxygen satur ation, respiratory therapy was called immediately to give him an albuterol and Atrovent nebulization, and I also dosed him with 9 cc for a total of 27 mg of oral prednisone to help with the inflammatory component of his reactive airway disease. Despite this albuterol nebulization his oxygen saturation remained approximately 92 and his cough was still very frequent. At this time I reassessed him. Hi s wheezes had decreased slightly on physical examination. We did then call respiratory for an additi onal albuterol and Atrovent nebulization, which again continued to reduce his wheezes and improved hi s oxygen saturation slightly to approximately 93 to 94%. However, again, Janet's cough was very per sistent. He did seem to have some improvement, however, with his retractions such that his retractio ns were less noticeable, and his respiratory rate had decreased to approximately 48. At this time, I discussed with the family that with his fever here in conjunction with his cough not responding to a lbuterol as it always had in the past, I did elect to do a chest x-ray to rule out the possibility of an atypical pneumonia contributing to his respiratory status. His x-ray was read by me and demonstr ated some increased interstitial markings in the right lower lobe and left lower lobe lung davies. A t this point I reviewed these findings with mom and dad, stating that I was concerned that it was per haps an atypical pneumonia process playing a role in his symptoms here, and for this we have elected to treat him with Zithromax as well for this illness. Before leaving he did receive a third albuterol nebulization, after which his O2 saturation was up to 95%. I had a lengthy discussion with the apurva chavira. They are certainly able to get back to the Emergency Room if he worsens, however, it is most lik cristy that his steroids will continue to kick in and they should continue to see some improvement in hi s respiratory status. Certainly his oxygen saturation is back in a normal range at this time at 95 t o 96%. I insured the family had plenty of albuterol at home and we then wrote prescriptions for Orap red and Zithromax. Mom did finally ask if it was possible to receive any type of stronger cough medi cation to suppress his cough slightly to at least help him sleep at night and I did agree to write fo r some Robitussin with codeine to help with severe night time cough, requesting that mom not use it d uring the day so that he can cough up his phlegm and secretions, saving the Robitussin with codeine f or just night time cough. Mom is comfortable with this plan and the family is sent home in stable co ndition. DIAGNOSIS: 1) Reactive airway disease. 2) Atypical pneumonia. DISCHARGE PLAN: I have placed him on Orapred 4 cc p.o. b.i.d. for the next five days. Albuterol nebs every four hours for w heezing. Zithromax for the next five days for pneumonia. Robitussin with codeine for severe night ti me cough, 2.5 cc per dose. If they are not significantly improved by Tuesday they should be rechecke d by Dr. Bautista. 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 [id number] _ TATI TUCKER MD MT: Document: [id number] [place], [place] Name: JANET RAMIREZ EMERGENCY ROOM ENCOUNTER Page 3 of 2 LCN: JOAQUINA DSC: 03/2003 [place], [place] Name: MR#: : Admit Date: JANET RAMIREZ [id number] 2001 06/02/2003 Doctor: TATI TUCKER MD EMERGENCY ROOM ENCOUNTER Page 1 of 2 Electronically filed by Pamela Betts 06/06/2003 12:23 PM documented in this encounter Plan of Treatment Upcoming Encounters Date Type Department Care Team (Late st Contact Info) Description 06/05/2025 4:30 PM INVESTIGATION DIVISION SERGEANT Virtual Visit [facility] [address] [place] [address] Scooter More PA-C [address] [place] [address] documented as of this encounter Visit Diagnoses Diagnosis ER- Primary documented in this encounter Care Teams Primary Care Nurse Relationship Specialty Start Date End Date Sienna [facility] MD PCP - General 07/15/03 03/03/22 Sienna [facility]on MD NO LONGER AT [facility]/UNABLE TO LOCATE 07/11/23 PCP - Assigned PCP 03/19/18 09/26/18 No Ref-Primary, Physician PCP - General 03/04/22 04/29/24 Scooter More PA-C [address] [place] [place] [id number] PCP - General 04/30/24 Sienna [facility] MD NO LONGER AT [facility]/UNABLE TO LOCATE 07/11/23 Assigned PCP 03/19/18 03/15/20 Sienna Carrera NP [address] [facility] [address] Assigned PCP 03/16/20 03/29/20 Jose E Sesay PA-C [address] [place] [address] [id number] Assigned PCP 03/30/20 07/05/20 Juliann Vega DPKvng, Podiatry/Foot and Ankle Surgery [address] [place] [id number] Assigned Musculoskeletal Provider 05/16/20 01/03/21 Sienna [facility] MD NO LONGER AT [facility]/UNABLE TO LOCATE 07/11/23 Assigned PCP 07/06/20 07/26/20 Jose E Sesay PA-C [address] [place] [address] [id number] Assigned PCP 07/27/20 03/19/22 Scooter More PA-C [address] [place] [address] Assigned PCP 03/20/22 Joey Krause MD [address] [place] [address], [facility] [address] [place] [address] Physician Infectious Diseases 09/05/24 Joey Krause MD [address] [place] [address], [address] [id number] Assigned Infectious Disease Provider 10/14/24 documented as of this encounter
--- OUTSIDE RECORDS SUMMARY | 2025-05-23 00:40 | XMS_ITS | Encounter Summary ---
Author Organization [facility] Address [address] [place] [address]. [place] [address] Care Team Providers Care Vice President Tax Name Role Phone Scooter More PA-C Unavailable [phone] Scooter More PA-C Primary Care Provider [phone] Joey Krause MD Unavailable [phone] Joey Krause MD Unavailable [phone] Encounter Details Date Type Department Care Team (Latest Contact Info) Description 05/14/2025 Travel Social History Tobacco Use Types Packs/Day Years Used Date Smoking Tobacco: Never Smokeless Tobacco: Never Comments:NO SMOKERS IN HOUSE Alcohol Use Standard Drinks/Week Comments No 0 (1 standard drink = 0.6 oz pur e alcohol) PHQ-2 Answer Date Recorded PHQ-2 Score 1 05/15/2025 [facility] - [...] in an abandoned building, in an overnight skilled nursing, or couch-surfing.) Yes 05/15/2025 Are you worried [...] on file Legal Sex Male 4:17 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 Gender Identity Not on file Sexual Orientation Not on file Travel History Travel Start Travel End [place] 05/10/2025 05/12/2025 documented as of this encounter Plan of Treatment Upcoming Encounters Date Type Department Care Team (Late st Contact Info) Description 06/05/2025 4:30 PM GRAPHICS INTERN Virtual Visit [facility] [address] [place] [address] Scooter More PA-C [address] [address] documented as of this encounter Visit Diagnoses Not on filedocumented in this encounter Additional Health Concerns Assessment Noted Time PHQ-9 Depression Total Score: 4 07/16/20 20 7:03 AM GRAPHICS INTERN documented as of this encounter Care Teams Vice President Tax Relationship Specialty Start Date End Date Scooter More PA-C [address] [place] [address] PCP - General 04/30/24 Scooter More PA-C [address] [address] Assigned PCP 03/20/22 Joey Krause MD [address] [place] [address] Physician Infectious Diseases 09/05/24 Joey Krause MD [address] [place] [address] Assigned Infectious Disease Provider 10/14/24 documented as of this encounter
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
[2025-05-23 00:44] VITALS: BP 134/81; PULSE 74; RESP 18; TEMP 36.7; O2SAT 99; BMI 27.3
--- NOTE | 2025-05-23 00:58 | ED.ANXIETY ---
HPI - Anxiety General Time Seen by Provider: 00:58 Date Seen: 05/23/25 Chief Complaint: Unspecified Complaint, Adult Stated Complaint: anxiety med reaction Time Seen by Provider: 05/23/25 00:57 Source: patient Mode of arrival: ambulatory History of Present Illness HPI narrative: Chi is a 24 yo male with a past medical history of anxiety who presents to the ED for anxiety, possible medication reaction. Patient reports that back in 2023 he had mono in since that time he has had a post viral syndrome with brain fog, fatigue, anxiety. Patient states that he recently saw his primary care provider last week and was started on Lexapro. Patient states he filled his prescription on Tuesday and took his 1st dose Tuesday morning around 7:00 a.m.. Patient reports during the day he felt more anxious, hot, cold, dry mouth, dizziness, and some worsening brain fog. Patient states he has had ongoing brain fog and dizziness and generalized fatigue since 2023. Patient states he did take his dose yesterday Tuesday morning around 10:00 a.m. and had worsening anxiety tonight so came into the ER. Patient denies any fever, chills, cough or cold-like symptoms, denies any other medications, substance use, tobacco, alcohol. Patient denies any suicide ideation, homicide ideation, intent to self-harm. Patient states unclear if this is known medication reaction, unable to sleep due to anxiety. Patient has a follow-up with his primary provider in 3 weeks. Related Data Home Medications ?Medication ?Instructions ?Recorded ?Confirmed budesonide 1 mg/2 mL suspension 1 mg inhalation BID 05/23/25 05/23/25 for nebulization escitalopram oxalate 10 mg tablet 10 mg PO DAILY 05/23/25 05/23/25 Allergies Allergy/AdvReac Type Severity Reaction Status Date / Time No Known Drug Allergies Allergy Verified 05/23/25 00:47 Review of Systems Narrative: Past medical history, past surgical history, medications, allergies, family history, and social history were reviewed with the patient. No additional pertinent items. A medically appropriate review of systems was performed with pertinent positives and negatives noted in HPI, all other systems negative. [facility] Medical History (Updated 05/23/25 @ 01:35 by Saba Loera MD) Eosinophilic esophagitis ?K20.0 - Eosinophilic esophagitis (ICD-10) Anxiety ?F41.9 - Anxiety disorder, unspecified (ICD-10) Asthma ?J45.909 - Unspecified asthma, uncomplicated (ICD-10) Surgical History History of nasal septoplasty ?Z98.890 - Other specified postprocedural states (ICD-10) History of esophagogastroduodenoscopy ?Z98.890 - Other specified postprocedural states (ICD-10) Social History Smoking Status: Never smoker Do you use any of these nicotine containing products: None Second hand tobacco smoke exposure: No How often do you have a drink containing alcohol: never How often do you have six or more drinks on one occasion: Never AUDIT-C Alcohol total score: 0 Non-prescribed substance use: denies use Exam Narrative: Exam Narrative: General: Afebrile, anxious, in distress HEENT: Normocephalic, atraumatic, conjunctiva normal. MMM Neck: non-tender, supple Cardio: regular rate. regular rhythm Resp: Normal work of breathing, no respiratory distress, lungs clear bilaterally, no wheezing, rhonchi, rales Chest/Back: no visual signs of trauma, no midline tenderness, no CVA tenderness Abdomen: soft, non distension, no tenderness, no peritoneal signs Neuro: alert and fully oriented. CN II-XII grossly intact. Grossly normal strength and sensation in all extremities. MSK: no deformities. Normal range of motion Integumentary/Skin: no rash visualized, normal color Psych: Anxious, denies suicide ideation, homicide ideation, intent to self-harm. Const: Vital Signs, click to edit/add: Vital Signs - 24 hr 05/23/25 00:44 Temperature 98.0 F Pulse Rate [Right Pulse Oximeter] 74 Respiratory Rate 18 Blood Pressure [Ri ght Upper Arm] 134/81 Pulse Oximetry 99 Oxygen Delivery Me thod Room Air Course Vital Signs Vital signs: Initial Vital Signs Temperature 98.0 F 05/23/25 00:44 Temperature Source Temporal Artery Scan 05/23/25 00:44 Pulse Rate 74 05/23/25 00:44 Respiratory Rate 18 05/23/25 00:44 Blood Pressure 134/81 05/23/25 00:44 Blood Pressure Mean 98 05/23/25 00:44 Blood Pressure Position Sitting 05/23/25 00:44 Pulse Oximetry 99 05/23/25 00:44 Oxygen Delivery Method Room Air 05/23/25 00:44 Vital Signs Temperature 98.0 F 05/23/25 00:44 Pulse Rate 74 05/23/25 00:44 Respiratory Rate 18 05/23/25 00:44 Blood Pressure 134/81 05/23/25 00:44 Pulse Oximetry 99 05/23/25 00:44 Oxygen Delivery Method Room Air 05/23/25 00:44 Temperature 98.0 F 05/23/25 00:44 Pulse Rate 74 05/23/25 00:44 Respiratory Rate 18 05/23/25 00:44 Blood Pressure 134/81 05/23/25 00:44 Pulse Oximetry 99 05/23/25 00:44 Oxygen Delivery Method Room Air 05/23/25 00:44 Medications Administered Medications: Discontinued Medications Generic Name Dose Route Start Last Admin Trade Name Freq PRN Reason Stop Dose Admin Hydroxyzine Pamoate 25 mg 05/23/25 01:34 05/23/25 01:36 Hydroxyzine Pamoate 25 Mg Capsule PO 05/23/25 01:35 25 mg ONCE ONE Administration MDM - Anxiety MDM Narrative Medical decision making narrative: Chi is a 24 yo male with a past medical history of anxiety who presents to the ED for anxiety, possible medication reaction. Upon arrival patient is anxious but otherwise nontoxic appearing, afebrile, no distress. Patient is here tonight with his mother, denies any suicide ideation, homicide ideation, intent to self-harm. Patient recently started on Lexapro for anxiety as well to help with his brain fog, fatigue. Patient has taken 2 doses so far, notes increased anxiety tonight. I discussed with patient this most likely secondary to the medication as well as not sleeping. Discuss that Lexapro will take a few weeks to kick in however he may start feeling improvement in energy 1st prior to improvement of his anxiety. We did discuss discontinue medication or continue medication to see full affects. Patient was treated with a dose of hydroxyzine in the emergency department to help with acute anxiety tonight as well as hopefully to help him sleep. On re-evaluation patient reports improvement of anxiety and was actually able to get some sleep while in the emergency department after hydroxyzine. Patient feels comfortable discharge home with mom, is agreeable to close outpatient follow-up with his primary care provider, strict return precautions discussed. Patient understands and agrees the plan. Medical Records Attestation: I reviewed the patient's medical records. Discharge Plan Discharge Clinical Impression: Anxiety Patient Disposition: Home, Self-Care Condition: Improved Additional Instructions: Please follow-up with your primary care provider in the next few days for further evaluation and follow-up. Please try to rest, sleep, drink plenty of liquids. Please continue on medications and monitor your symptoms. Return to the emergency department if any worsening symptoms. It was a pleasure taking care of you today. We hope you feel better soon. Prescriptions: No Action budesonide 1 mg/2 mL suspension for nebulization 1 mg inhalation BID Patient Comments: [NO ORIGINAL SIG] escitalopram oxalate 10 mg tablet 10 mg PO DAILY Follow Up/Referrals: Provider,Not a Local [Primary Care Provider, Family Practice] Stand Alone Forms: [employer] Info Instructions
[2025-05-23 02:21] VITALS: BP 129/84; PULSE 70; RESP 18; TEMP 36.7; O2SAT 99
[2025-05-23 02:22] VITALS: BP 129/84; PULSE 70; RESP 18; TEMP 36.7
== END 2025-05-23 02:22 | disposition home or self-care (01) ==
PROVIDERS: Emergency Provider Emergency Medicine
DX: F41.9 Anxiety disorder, unspecified (principal)
CPT/HCPCS: 99283; 99284; A9270